=== PATIENT | female | born 1960 | race Caucasian/White ===

== ENCOUNTER 2023-03-02 07:02 | Day surgery (SDC) | payer OTHER ==
[~2023-03-02] VITALS: Ht 162.6 cm; Wt 55.2 kg
[2023-03-02 07:30] VITALS: BP 123/55; PULSE 77; TEMP 97.3
[2023-03-02] MEDS ORDERED: ASPIRIN E.C. 8181 MG PO (07:36)
[2023-03-02] MEDS ORDERED: DESYREL 100MG100 MG PO (07:36)
[2023-03-02] MEDS ORDERED: FOLIC ACID 11 MG/TA1 PO (07:37)
[2023-03-02] MEDS ORDERED: K-DUR20 MEQ PO (07:37)
[2023-03-02] MEDS ORDERED: LIPITOR 80MG80 MG PO (07:38)
[2023-03-02] MEDS ORDERED: LASIX 20MG TABL20 MG PO (07:38)
[2023-03-02] MEDS ORDERED: MAG OX 250 (07:39)
[2023-03-02] MEDS ORDERED: LOPRESSOR 225 MG/TAB (07:39)
[2023-03-02] MEDS ORDERED: VITAMIN D31000 I1 PO (07:40)
[2023-03-02] MEDS ORDERED: OSCAL 500 TAB500 MG (07:40)
[2023-03-02] MEDS ORDERED: LEADER NATUR1000 MCG PO (07:41)
[2023-03-02] MEDS ORDERED: PROAIR HFA0.09 MG/AC IH (07:42)
[2023-03-02] MEDS ORDERED: BREZTRI AEROS10.7 GM IH (07:42)
--- NOTE | 2023-03-02 07:57 | NUR ---
PATIENT AMBULATED TO BAY 6 WITH STEADY GAIT. ALERT AND ORIENTED X4. PATIENT STATED UNDERSTANDING OF PROCEDURE. CONSENTS SIGNED. ASSESSMENT COMPLETED. 20G IV STARTED IN RIGHT HAND. LR INFUSING WITHOUT DIFFICULTIES. NO FURTHER NEEDS NOTED. RESTING IN RECLINER. CALL LIGHT IN REACH.
[2023-03-02 08:51] VITALS: BP 114/54; PULSE 74; TEMP 97.1
--- NOTE | 2023-03-02 08:51 | NUR ---
PATIENT AMBULATED TO CHAIR WITH STEADY GAIT, ALERT AND ORIENTED X3. DENIES PAIN, NAUSEA AND SHORTNESS OF BREATH. BREATHING REGULAR AND UNLABORED ON ROOM AIR. SKIN WARM AND DRY. NURSE HANDOFF COMPLETED IN ROOM. SEE CHART FOR VITAL SIGNS. PATIENT HAD APPLESAUCE AND JUICE. BOTH FOOD AND DRINK TOLERATED WELL. SPOUSE, SHERMAN, PRESENT IN ROOM. CALL LIGHT IN REACH.
[2023-03-02 09:00] VITALS: BP 102/60; PULSE 71
[2023-03-02 09:10] VITALS: BP 116/60; PULSE 69
--- NOTE | 2023-03-02 09:18 | NUR ---
0908: MET WITH PATIENT AND SPOUSE TO DISCUSS PROCEDURE. 0910: DISCHARGE TEACHING COMPLETED WITH PRINTED EDUCATION AND INSTRUCTIONS SENT HOME WITH PATIENT. PATIENT AND SPOUSE VERBALIZED UNDERSTANDING OF TEACHING. DENIES PAIN, NAUSEA AND SHORTNESS OF BREATH. IV REMOVED. GAUZE AND COBAN PLACED OVER SITE. PATIENT DISCHARGED TO HOME WITH SHERMAN, , TRANSPORT.
== END 2023-03-02 09:18 | disposition home or self-care (01) ==
LOC: SDCO 07:02
DX: Z12.11 Encounter for screening for malignant neoplasm of colon (principal); Z86.010 Personal history of colon polyps
CPT/HCPCS: J2704; J7120